=== PATIENT | female | born 1970 | race Caucasian/White ===

== ENCOUNTER 2019-10-23 10:34 | Inpatient (IN) ==
[2019-10-23 11:17] LABS: Basophils % 0.2 % (0.0-0.8); Hematocrit 42.5 VOL% (35.7-47.0); Hemoglobin 14.3 GM/DL (12.0-16.0); Immature Granulocytes % 0.4 %; Immature Granulocytes Absolute 0.02 #; Lymphocytes # 0.6 10*3/uL (1.4-4.0); Lymphocytes % 11.8 % (21.3-54.2); Mean Corpuscular HGB Conc 33.6 GM/DL (32-36); Mean Corpuscular Volume 96.6 FL (87-102); Mean Platelet Volume 8.9 FL (9.6-12.0); Monocytes % 4.8 % (1.7-12.7); Neutrophils % 82.8 % (38.7-73.9); Platelet Count 166 T/CUMM (130-400); Red Cell Distribution Width 14.1 % (9.3-17.3); White Blood Count 5.2 T/CUMM (4-12)
[2019-10-23 11:36] LABS: PT Patient Result 10.4 SECS (9.8-11.9); Partial Thromboplastin Time 36.2 SECS (23.9-33.8)
[2019-10-23 11:41] LABS: Alanine Aminotransferase 65 U/L (13-56); Albumin 3.2 G/DL (3.4-5.0); Alkaline Phosphatase 76 U/L (45-117); Aspartate Amino Transferase 71 U/L (0-37); Bilirubin,Total < 0.39 MG/DL (0.2-1.0); Blood Urea Nitrogen 13 MG/DL (7-18); Calcium 8.4 MG/DL (8.5-10.1); Estimated Glom Filtration Rate 85 ML/MIN; Glucose 110 MG/DL (74-106); Osmolality,Calculated 270.1 MOS/KG (273-304); Total Protein 7.8 G/DL (6.4-8.3)
[2019-10-23 11:42] LABS: ABG Base Excess -1.5 MMOL/L (-2.5-2.5); ABG HCO3 22.8 MMOL/L (20-26); ABG Oxygen Saturation 92.4 % (95-100); ABG PH 7.407 (7.35-7.45); ABG PO2 67.4 MM HG (80-95); ABG TCO2 23.9 MMOL/L (23-27)
[2019-10-23] MEDS ORDERED: cefTRIAXone 1,000 MG in SODIUM CHLORIDE 0.9% 100 ML IV STA (12:10)
[2019-10-23] MEDS ORDERED: DEXAMETHASONE 4 MG/1 ML VIAL IV STA (12:18)
[2019-10-23] MEDS ORDERED: GLUCAGON 1 MG VIAL IM PRN ×2 (13:19)
[2019-10-23] MEDS ORDERED: DEXTROSE 50% 25 GM/50 ML VIAL IV PRN ×2 (13:19)
[2019-10-23 15:54] LABS: Apearance,Urine CLEAR (Clear); Bilirubin,Urine Negative (Negative); Blood, Urine Large mg/dL (Negative); Glucose,Urine (UA) >=500 mg/dL (Negative); Ketones,Urine 20 mg/dL (Negative); Nitrite,Urine Negative (Negative); Protein,Urine 30 MG/DL; RBC,Urine 535 /HPF (0-4); Squamous Epithelial Cell,Urine Occasional /HPF (0-10); Urine Color Yellow (Yellow); Urine Specific Gravity > 1.060 (1.001-1.035); Urine Urobilinogen < 2.0 EU/DL (0.2-1.0); WBC,Urine 1 /HPF (0-6)
[2019-10-23] MEDS: INSULIN REGULAR 100 UNIT/ML SUBCUT SCH ×3 (16:47→22:23)
[2019-10-23] MEDS: AZTREONAM 2,000 MG in SODIUM CHLORIDE 0.9% 100 ML IV SCH (17:52)
[2019-10-23] MEDS: metFORMIN 500 MG TABLET PO SCH (22:17)
[2019-10-23] MEDS: GABAPENTIN 300 MG CAPSULE PO SCH (22:17)
[2019-10-23] MEDS: HEPARIN 5,000 UNIT/1 ML VIAL SUBCUT SCH (22:24)
[2019-10-23 22:39] LABS: Barbiturates Screen,Urine Negative (Negative); Benzodiazepines Screen,Urine Positive (Negative); Cannabinoid Screen,Urine Negative (Negative); Opiate Screen,Urine Positive (Negative); Phencyclidine Screen,Urine Negative (Negative)
[2019-10-24] MEDS: AZTREONAM 2,000 MG in SODIUM CHLORIDE 0.9% 100 ML IV SCH ×2 (00:38→06:30)
[2019-10-24 04:43] LABS: Hemoglobin 13.9 GM/DL (12.0-16.0); Immature Granulocytes % 0.2 %; Immature Granulocytes Absolute 0.01 #; Lymphocytes # 0.8 10*3/uL (1.4-4.0); Lymphocytes % 18.3 % (21.3-54.2); Mean Corpuscular HGB Conc 33.1 GM/DL (32-36); Mean Corpuscular Volume 95.5 FL (87-102); Mean Platelet Volume 8.9 FL (9.6-12.0); Monocytes % 8.1 % (1.7-12.7); Neutrophils % 73.4 % (38.7-73.9); Platelet Count 174 T/CUMM (130-400); White Blood Count 4.4 T/CUMM (4-12)
[2019-10-24 05:11] LABS: Albumin 2.8 G/DL (3.4-5.0); Bilirubin,Total 0.7 MG/DL (0.2-1.0); Calcium 8.6 MG/DL (8.5-10.1); Ferritin 187.8 ng/ml (8-252); Total Protein 7.5 G/DL (6.4-8.3)
[2019-10-24] MEDS: HEPARIN 5,000 UNIT/1 ML VIAL SUBCUT SCH (06:31)
[2019-10-24 06:39] LABS: Sedimentation Rate-Westergren 45 MM/HR (0-20)
[2019-10-24] MEDS ORDERED: ATORVASTATIN 40 MG TABLET PO SCH (09:00)
[2019-10-24] MEDS: INSULIN REGULAR 100 UNIT/ML SUBCUT SCH ×4 (09:14→21:28)
[2019-10-24] MEDS: ESCITALOPRAM 10 MG TABLET PO SCH (09:14)
[2019-10-24] MEDS: metFORMIN 500 MG TABLET PO SCH ×2 (09:14→21:14)
[2019-10-24] MEDS: ENOXAPARIN 60 MG/0.6 ML SYRINGE SUBCUT SCH ×2 (09:15→21:15)
[2019-10-24] MEDS: GABAPENTIN 100 MG CAPSULE PO SCH (09:15)
[2019-10-24] MEDS: buPROPion XL 150 MG TABLET PO SCH (09:15)
[2019-10-24] MEDS: DEXAMETHASONE 4 MG/1 ML VIAL IV SCH (09:16)
[2019-10-24] MEDS ORDERED: DOCUSATE SODIUM 100 MG CAPSULE PO PRN (11:22)
[2019-10-24] MEDS: PANTOPRAZOLE 40 MG VIAL IV SCH (11:46)
[2019-10-24] MEDS: ALBUTEROL INHALER 18 GM INH SCH ×2 (12:38→18:18)
[2019-10-24] MEDS: ACETAMINOPHEN 325 MG TABLET PO PRN (12:38)
[2019-10-24] MEDS: CALCIUM CARBONATE CHEW 500 MG TABLET PO PRN (16:33)
[2019-10-24] MEDS ORDERED: REMDESIVIR 200 MG in SODIUM CHLORIDE 0.9% 210 ML IV ONE (17:00)
[2019-10-24] MEDS: GABAPENTIN 300 MG CAPSULE PO SCH (21:14)
[2019-10-24] MEDS: tiZANidine 4 MG TABLET PO PRN (21:20)
[2019-10-24] MEDS: CLORAZEPATE 7.5 MG TABLET PO PRN (21:20)
[2019-10-25] MEDS: ALBUTEROL INHALER 18 GM INH SCH ×4 (00:20→18:01)
[2019-10-25 03:39] LABS: Hematocrit 43.5 VOL% (35.7-47.0); Immature Granulocytes % 0.3 %; Immature Granulocytes Absolute 0.02 #; Lymphocytes % 17.1 % (21.3-54.2); Mean Corpuscular HGB Conc 32.2 GM/DL (32-36); Monocytes % 7.1 % (1.7-12.7); Neutrophils % 75.5 % (38.7-73.9); Platelet Count 191 T/CUMM (130-400); Red Blood Count 4.44 MC/CUMM (3.8-5.5); Red Cell Distribution Width 14.1 % (9.3-17.3); White Blood Count 5.9 T/CUMM (4-12)
[2019-10-25 03:48] LABS: INR 0.9
[2019-10-25 04:08] LABS: Risk Ratio 3.73; VLDL CHOLESTEROL 32.2 MG/DL
[2019-10-25 04:09] LABS: Albumin 2.8 G/DL (3.4-5.0); Bilirubin,Total 0.9 MG/DL (0.2-1.0); Calcium 8.7 MG/DL (8.5-10.1); Ferritin 201.8 ng/ml (8-252); Osmolality,Calculated 279.5 MOS/KG (273-304); Total Protein 7.3 G/DL (6.4-8.3)
[2019-10-25 04:39] LABS: Sedimentation Rate-Westergren 93 MM/HR (0-20)
[2019-10-25] MEDS: INSULIN REGULAR 100 UNIT/ML SUBCUT SCH ×4 (07:36→21:05)
[2019-10-25] MEDS: CLORAZEPATE 7.5 MG TABLET PO PRN ×2 (07:58→21:06)
[2019-10-25] MEDS: ESCITALOPRAM 10 MG TABLET PO SCH (08:51)
[2019-10-25] MEDS: GABAPENTIN 100 MG CAPSULE PO SCH (08:51)
[2019-10-25] MEDS: metFORMIN 500 MG TABLET PO SCH ×2 (08:52→21:05)
[2019-10-25] MEDS: buPROPion XL 150 MG TABLET PO SCH (08:52)
[2019-10-25] MEDS: PANTOPRAZOLE 40 MG VIAL IV SCH (10:00)
[2019-10-25] MEDS: DEXAMETHASONE 4 MG/1 ML VIAL IV SCH (10:00)
[2019-10-25] MEDS: ENOXAPARIN 60 MG/0.6 ML SYRINGE SUBCUT SCH ×2 (10:01→21:06)
[2019-10-25] MEDS: CALCIUM CARBONATE CHEW 500 MG TABLET PO PRN (10:02)
[2019-10-25] MEDS: REMDESIVIR 100 MG in SODIUM CHLORIDE 0.9% 230 ML IV SCH (16:52)
[2019-10-25] MEDS: ATORVASTATIN 40 MG TABLET PO SCH (21:06)
[2019-10-25] MEDS: tiZANidine 4 MG TABLET PO PRN (21:06)
[2019-10-25] MEDS: GABAPENTIN 300 MG CAPSULE PO SCH (21:06)
[2019-10-26] MEDS: ALBUTEROL INHALER 18 GM INH SCH ×5 (01:09→18:10)
[2019-10-26 06:26] LABS: Basophils % 0.4 % (0.0-0.8); Hematocrit 41.2 VOL% (35.7-47.0); Hemoglobin 13.6 GM/DL (12.0-16.0); Immature Granulocytes % 0.9 %; Immature Granulocytes Absolute 0.05 #; Lymphocytes # 0.9 10*3/uL (1.4-4.0); Lymphocytes % 15.6 % (21.3-54.2); Mean Corpuscular Volume 95.2 FL (87-102); Mean Platelet Volume 9.3 FL (9.6-12.0); Monocytes % 7.3 % (1.7-12.7); Neutrophils % 75.8 % (38.7-73.9); Platelet Count 200 T/CUMM (130-400); Red Blood Count 4.33 MC/CUMM (3.8-5.5); Red Cell Distribution Width 13.8 % (9.3-17.3); White Blood Count 5.6 T/CUMM (4-12)
[2019-10-26 06:40] LABS: Albumin 2.7 G/DL (3.4-5.0); Bilirubin,Total 0.5 MG/DL (0.2-1.0); Calcium 8.7 MG/DL (8.5-10.1); Ferritin 186.8 ng/ml (8-252); Osmolality,Calculated 278.7 MOS/KG (273-304); Total Protein 7.3 G/DL (6.4-8.3)
[2019-10-26 06:42] LABS: PT Patient Result 10.4 SECS (9.8-11.9)
[2019-10-26] MEDS: INSULIN REGULAR 100 UNIT/ML SUBCUT SCH ×4 (07:36→21:23)
[2019-10-26 07:44] LABS: Sedimentation Rate-Westergren 66 MM/HR (0-20)
[2019-10-26] MEDS: ESCITALOPRAM 10 MG TABLET PO SCH (08:58)
[2019-10-26] MEDS: GABAPENTIN 100 MG CAPSULE PO SCH (08:58)
[2019-10-26] MEDS: metFORMIN 500 MG TABLET PO SCH ×2 (08:58→21:23)
[2019-10-26] MEDS: ENOXAPARIN 60 MG/0.6 ML SYRINGE SUBCUT SCH ×2 (08:59→21:24)
[2019-10-26] MEDS: DEXAMETHASONE 4 MG/1 ML VIAL IV SCH (09:00)
[2019-10-26] MEDS: PANTOPRAZOLE 40 MG VIAL IV SCH (09:00)
[2019-10-26] MEDS: buPROPion XL 150 MG TABLET PO SCH (09:01)
[2019-10-26] MEDS: CALCIUM CARBONATE CHEW 500 MG TABLET PO PRN (09:01)
[2019-10-26] MEDS: CLORAZEPATE 7.5 MG TABLET PO PRN ×2 (09:01→21:25)
[2019-10-26] MEDS: REMDESIVIR 100 MG in SODIUM CHLORIDE 0.9% 230 ML IV SCH (16:25)
[2019-10-26] MEDS: ATORVASTATIN 40 MG TABLET PO SCH (21:24)
[2019-10-26] MEDS: GABAPENTIN 300 MG CAPSULE PO SCH (21:24)
[2019-10-26] MEDS: tiZANidine 4 MG TABLET PO PRN (21:25)
[2019-10-27] MEDS: ALBUTEROL INHALER 18 GM INH SCH ×4 (00:37→18:05)
[2019-10-27 07:30] LABS: Basophils % 0.2 % (0.0-0.8); Eosinophils % 0.1 % (0.00-10.9); Hematocrit 41.9 VOL% (35.7-47.0); Hemoglobin 13.8 GM/DL (12.0-16.0); Immature Granulocytes % 0.9 %; Immature Granulocytes Absolute 0.08 #; Lymphocytes # 0.9 10*3/uL (1.4-4.0); Lymphocytes % 9.9 % (21.3-54.2); Mean Corpuscular HGB Conc 32.9 GM/DL (32-36); Mean Corpuscular Volume 95.4 FL (87-102); Mean Platelet Volume 9.3 FL (9.6-12.0); Neutrophils % 83.9 % (38.7-73.9); Platelet Count 245 T/CUMM (130-400); Red Blood Count 4.39 MC/CUMM (3.8-5.5); Red Cell Distribution Width 13.8 % (9.3-17.3)
[2019-10-27 08:09] LABS: Albumin 2.8 G/DL (3.4-5.0); Bilirubin,Total 0.5 MG/DL (0.2-1.0); Calcium 8.6 MG/DL (8.5-10.1); Ferritin 178.1 ng/ml (8-252); Total Protein 6.8 G/DL (6.4-8.3)
[2019-10-27] MEDS: ESCITALOPRAM 10 MG TABLET PO SCH (08:27)
[2019-10-27] MEDS: GABAPENTIN 100 MG CAPSULE PO SCH (08:27)
[2019-10-27] MEDS: CLORAZEPATE 7.5 MG TABLET PO PRN ×2 (08:27→20:55)
[2019-10-27] MEDS: DEXAMETHASONE 4 MG/1 ML VIAL IV SCH (08:28)
[2019-10-27] MEDS: metFORMIN 500 MG TABLET PO SCH ×2 (08:28→20:54)
[2019-10-27] MEDS: buPROPion XL 150 MG TABLET PO SCH (08:28)
[2019-10-27] MEDS: ENOXAPARIN 60 MG/0.6 ML SYRINGE SUBCUT SCH ×2 (08:29→20:53)
[2019-10-27] MEDS: INSULIN REGULAR 100 UNIT/ML SUBCUT SCH ×4 (08:30→21:07)
[2019-10-27 08:43] LABS: Sedimentation Rate-Westergren 57 MM/HR (0-20)
[2019-10-27 10:07] LABS: ABG Base Excess 2.7 MMOL/L (-2.5-2.5); ABG HCO3 26.8 MMOL/L (20-26); ABG Oxygen Saturation 96.6 % (95-100); ABG PCO2 39.8 MM HG (35-48); ABG PH 7.438 (7.35-7.45); ABG PO2 87.1 MM HG (80-95); ABG TCO2 23.4 MMOL/L (23-27); Pt O2 Delivery Device Other
[2019-10-27] MEDS: ACETAMINOPHEN 325 MG TABLET PO PRN (16:04)
[2019-10-27] MEDS: REMDESIVIR 100 MG in SODIUM CHLORIDE 0.9% 230 ML IV SCH (16:04)
[2019-10-27] MEDS: ATORVASTATIN 40 MG TABLET PO SCH (20:54)
[2019-10-27] MEDS: tiZANidine 4 MG TABLET PO PRN (20:55)
[2019-10-27] MEDS: GABAPENTIN 300 MG CAPSULE PO SCH (20:55)
[2019-10-28] MEDS: ALBUTEROL INHALER 18 GM INH SCH ×4 (00:50→18:41)
[2019-10-28 06:15] LABS: Basophils % 0.1 % (0.0-0.8); Eosinophils % 0.3 % (0.00-10.9); Hematocrit 40.5 VOL% (35.7-47.0); Hemoglobin 13.6 GM/DL (12.0-16.0); Immature Granulocytes % 0.8 %; Immature Granulocytes Absolute 0.08 #; Lymphocytes # 0.5 10*3/uL (1.4-4.0); Lymphocytes % 5.5 % (21.3-54.2); Mean Corpuscular HGB Conc 33.6 GM/DL (32-36); Mean Corpuscular Volume 94.4 FL (87-102); Mean Platelet Volume 9.5 FL (9.6-12.0); Monocytes % 2.6 % (1.7-12.7); Neutrophils % 90.7 % (38.7-73.9); Platelet Count 253 T/CUMM (130-400); Red Blood Count 4.29 MC/CUMM (3.8-5.5); Red Cell Distribution Width 13.7 % (9.3-17.3); White Blood Count 9.8 T/CUMM (4-12)
[2019-10-28 06:53] LABS: Albumin 2.5 G/DL (3.4-5.0); Bilirubin,Total 0.7 MG/DL (0.2-1.0); Calcium 8.5 MG/DL (8.5-10.1); Ferritin 176.7 ng/ml (8-252); Osmolality,Calculated 273.1 MOS/KG (273-304)
[2019-10-28 07:45] LABS: INR 1.1; PT Patient Result 11.3 SECS (9.8-11.9)
[2019-10-28] MEDS: INSULIN REGULAR 100 UNIT/ML SUBCUT SCH ×4 (08:37→22:23)
[2019-10-28] MEDS: ENOXAPARIN 60 MG/0.6 ML SYRINGE SUBCUT SCH ×2 (09:41→20:36)
[2019-10-28] MEDS: GABAPENTIN 100 MG CAPSULE PO SCH (09:42)
[2019-10-28] MEDS: DEXAMETHASONE 4 MG/1 ML VIAL IV SCH (09:42)
[2019-10-28] MEDS: buPROPion XL 150 MG TABLET PO SCH (09:43)
[2019-10-28] MEDS: ESCITALOPRAM 10 MG TABLET PO SCH (09:43)
[2019-10-28] MEDS: metFORMIN 500 MG TABLET PO SCH ×2 (09:43→20:35)
[2019-10-28] MEDS: CLORAZEPATE 7.5 MG TABLET PO PRN ×2 (09:43→20:35)
[2019-10-28 09:45] LABS: Anisocytosis Slight; Band Neutrophils 2 % (0-10); Lymphocytes 6 % (20-55); Macrocytosis Slight; Platelet Estimate Normal; Segmented Neutrophils 89 % (50-85); Total Cells Counted 100
[2019-10-28] MEDS: ACETAMINOPHEN 325 MG TABLET PO PRN (09:45)
[2019-10-28 11:08] LABS: Sedimentation Rate-Westergren 90 MM/HR (0-20)
[2019-10-28] MEDS: REMDESIVIR 100 MG in SODIUM CHLORIDE 0.9% 230 ML IV SCH (16:12)
[2019-10-28] MEDS: ATORVASTATIN 40 MG TABLET PO SCH (20:35)
[2019-10-28] MEDS: GABAPENTIN 300 MG CAPSULE PO SCH (20:41)
[2019-10-28] MEDS: LOPERAMIDE 2 MG CAPSULE PO PRN (20:50)
[2019-10-28] MEDS: CALCIUM CARBONATE CHEW 500 MG TABLET PO PRN (20:50)
[2019-10-29] MEDS: ALBUTEROL INHALER 18 GM INH SCH ×4 (01:50→18:14)
[2019-10-29 06:01] LABS: INR 1.1; PT Patient Result 11.4 SECS (9.8-11.9)
[2019-10-29 08:04] LABS: Basophils % 0.1 % (0.0-0.8); Eosinophils # 0.1 10*3/uL (0.0-0.87); Eosinophils % 0.7 % (0.00-10.9); Hemoglobin 13.8 GM/DL (12.0-16.0); Immature Granulocytes % 0.8 %; Immature Granulocytes Absolute 0.09 #; Lymphocytes # 0.5 10*3/uL (1.4-4.0); Lymphocytes % 4.6 % (21.3-54.2); Mean Corpuscular HGB Conc 32.1 GM/DL (32-36); Mean Corpuscular Volume 99.1 FL (87-102); Mean Platelet Volume 9.7 FL (9.6-12.0); Monocytes % 3.1 % (1.7-12.7); Neutrophils % 90.7 % (38.7-73.9); Platelet Count 318 T/CUMM (130-400); Red Blood Count 4.34 MC/CUMM (3.8-5.5); Red Cell Distribution Width 13.7 % (9.3-17.3); White Blood Count 11.6 T/CUMM (4-12)
[2019-10-29 08:23] LABS: Albumin 2.5 G/DL (3.4-5.0); Bilirubin,Total 0.6 MG/DL (0.2-1.0); Calcium 9.2 MG/DL (8.5-10.1); Ferritin 196.9 ng/ml (8-252); Osmolality,Calculated 273.8 MOS/KG (273-304); Total Protein 7.4 G/DL (6.4-8.3)
[2019-10-29 08:28] LABS: Anisocytosis Slight; Band Neutrophils 13 % (0-10); Eosinophils 1 % (0-10); Lymphocytes 4 % (20-55); Platelet Estimate Normal; Segmented Neutrophils 80 % (50-85); Total Cells Counted 100
[2019-10-29 08:29] LABS: Macrocytosis Slight
[2019-10-29] MEDS: INSULIN REGULAR 100 UNIT/ML SUBCUT SCH ×4 (08:30→20:55)
[2019-10-29] MEDS: GABAPENTIN 100 MG CAPSULE PO SCH (08:58)
[2019-10-29] MEDS: ESCITALOPRAM 10 MG TABLET PO SCH (08:58)
[2019-10-29] MEDS: ENOXAPARIN 60 MG/0.6 ML SYRINGE SUBCUT SCH ×2 (08:58→20:56)
[2019-10-29] MEDS: CLORAZEPATE 7.5 MG TABLET PO PRN (08:58)
[2019-10-29] MEDS: metFORMIN 500 MG TABLET PO SCH ×2 (08:58→20:54)
[2019-10-29] MEDS: buPROPion XL 150 MG TABLET PO SCH (08:58)
[2019-10-29] MEDS: DEXAMETHASONE 4 MG/1 ML VIAL IV SCH (08:59)
[2019-10-29] MEDS: carvediloL 6.25 MG TABLET PO SCH ×2 (09:00→20:55)
[2019-10-29 09:20] LABS: Sedimentation Rate-Westergren 57 MM/HR (0-20)
[2019-10-29] MEDS: LOPERAMIDE 2 MG CAPSULE PO PRN (14:27)
[2019-10-29] MEDS: GABAPENTIN 300 MG CAPSULE PO SCH (20:55)
[2019-10-29] MEDS: ATORVASTATIN 40 MG TABLET PO SCH (20:55)
[2019-10-30] MEDS: ALBUTEROL INHALER 18 GM INH SCH ×4 (01:45→20:00)
[2019-10-30 05:58] LABS: Basophils % 0.1 % (0.0-0.8); Eosinophils # 0.1 10*3/uL (0.0-0.87); Eosinophils % 0.7 % (0.00-10.9); Hematocrit 42.7 VOL% (35.7-47.0); Hemoglobin 13.9 GM/DL (12.0-16.0); Immature Granulocytes % 1.2 %; Immature Granulocytes Absolute 0.16 #; Lymphocytes # 0.5 10*3/uL (1.4-4.0); Mean Corpuscular HGB Conc 32.6 GM/DL (32-36); Mean Corpuscular Volume 96.6 FL (87-102); Mean Platelet Volume 9.7 FL (9.6-12.0); Monocytes % 2.5 % (1.7-12.7); Neutrophils % 91.5 % (38.7-73.9); Platelet Count 365 T/CUMM (130-400); Red Blood Count 4.42 MC/CUMM (3.8-5.5); Red Cell Distribution Width 13.4 % (9.3-17.3); White Blood Count 13.6 T/CUMM (4-12)
[2019-10-30 06:05] LABS: INR 1.1; PT Patient Result 11.4 SECS (9.8-11.9)
[2019-10-30 06:22] LABS: Eosinophils 1 % (0-10); Lymphocytes 2 % (20-55); Platelet Estimate Adequate; Segmented Neutrophils 94 % (50-85); Total Cells Counted 100
[2019-10-30 06:23] LABS: Macrocytosis Slight
[2019-10-30 06:26] LABS: Albumin 2.4 G/DL (3.4-5.0); Bilirubin,Total 0.7 MG/DL (0.2-1.0); Calcium 8.8 MG/DL (8.5-10.1); Ferritin 203.6 ng/ml (8-252); Total Protein 6.4 G/DL (6.4-8.3)
[2019-10-30 07:09] LABS: Sedimentation Rate-Westergren 29 MM/HR (0-20)
[2019-10-30] MEDS: DEXAMETHASONE 4 MG/1 ML VIAL IV SCH (08:53)
[2019-10-30] MEDS: ENOXAPARIN 60 MG/0.6 ML SYRINGE SUBCUT SCH ×2 (08:53→20:00)
[2019-10-30] MEDS: INSULIN REGULAR 100 UNIT/ML SUBCUT SCH ×4 (08:54→21:29)
[2019-10-30] MEDS: buPROPion XL 150 MG TABLET PO SCH (08:55)
[2019-10-30] MEDS: metFORMIN 500 MG TABLET PO SCH (08:55)
[2019-10-30] MEDS: ESCITALOPRAM 10 MG TABLET PO SCH (08:55)
[2019-10-30] MEDS: CLORAZEPATE 7.5 MG TABLET PO PRN (08:55)
[2019-10-30] MEDS: GABAPENTIN 100 MG CAPSULE PO SCH (08:55)
[2019-10-30] MEDS: carvediloL 6.25 MG TABLET PO SCH ×2 (08:56→20:00)
[2019-10-30] MEDS: CALCIUM CARBONATE CHEW 500 MG TABLET PO PRN (10:02)
[2019-10-30 10:29] LABS: ABG Base Excess 5.8 MMOL/L (-2.5-2.5); ABG HCO3 29.4 MMOL/L (20-26); ABG Oxygen Saturation 91.1 % (95-100); ABG PCO2 42.9 MM HG (35-48); ABG PH 7.457 (7.35-7.45); ABG PO2 63.1 MM HG (80-95); ABG TCO2 26.1 MMOL/L (23-27); Allen Test Positive; Pt O2 Delivery Device Other
[2019-10-30] MEDS ORDERED: ONDANSETRON 4 MG/2 ML VIAL IV PRN (13:38)
[2019-10-30] MEDS ORDERED: BISACODYL 5 MG TABLET PO PRN (13:38)
[2019-10-30] MEDS: GABAPENTIN 300 MG CAPSULE PO SCH (20:00)
[2019-10-30] MEDS: ATORVASTATIN 40 MG TABLET PO SCH (20:00)
[2019-10-30] MEDS ORDERED: CLORAZEPATE 7.5 MG TABLET PO PRN (20:16)
[2019-10-30] MEDS ORDERED: tiZANidine 4 MG TABLET PO PRN (20:17)
[2019-10-30] MEDS ORDERED: ALBUTEROL/IPRATROPIUM 3 ML NEB RESP TX PRN (22:54)
[2019-10-30] MEDS ORDERED: ALBUTEROL/IPRATROPIUM 3 ML NEB RESP TX ONE (22:56)
[2019-10-31 00:50] LABS: ABG Base Excess 6.2 MMOL/L (-2.5-2.5); ABG HCO3 29.8 MMOL/L (20-26); ABG Oxygen Saturation 86.2 % (95-100); ABG PCO2 49.1 MM HG (35-48); ABG PH 7.421 (7.35-7.45); ABG PO2 54.1 MM HG (80-95)
[2019-10-31] MEDS: ALBUTEROL INHALER 18 GM INH SCH ×4 (01:00→18:16)
[2019-10-31 03:40] LABS: Basophils % 0.2 % (0.0-0.8); Eosinophils # 0.1 10*3/uL (0.0-0.87); Eosinophils % 0.8 % (0.00-10.9); Hematocrit 43.1 VOL% (35.7-47.0); Immature Granulocytes % 0.8 %; Immature Granulocytes Absolute 0.11 #; Lymphocytes # 0.5 10*3/uL (1.4-4.0); Lymphocytes % 3.8 % (21.3-54.2); Mean Corpuscular HGB Conc 32.5 GM/DL (32-36); Mean Corpuscular Volume 96.9 FL (87-102); Mean Platelet Volume 9.4 FL (9.6-12.0); Monocytes % 2.7 % (1.7-12.7); Neutrophils % 91.7 % (38.7-73.9); Platelet Count 371 T/CUMM (130-400); Red Blood Count 4.45 MC/CUMM (3.8-5.5); Red Cell Distribution Width 13.7 % (9.3-17.3); White Blood Count 14.2 T/CUMM (4-12)
[2019-10-31] MEDS: ACETAMINOPHEN 325 MG TABLET PO PRN (04:05)
[2019-10-31 04:07] LABS: Albumin 2.3 G/DL (3.4-5.0); Bilirubin,Total 0.9 MG/DL (0.2-1.0); Calcium 8.9 MG/DL (8.5-10.1); Ferritin 207.2 ng/ml (8-252); Osmolality,Calculated 276.7 MOS/KG (273-304); Total Protein 7.4 G/DL (6.4-8.3)
[2019-10-31 04:26] LABS: Band Neutrophils 1 % (0-10); Hypochromasia 1+; Lymphocytes 4 % (20-55); Platelet Estimate Adequate; Segmented Neutrophils 93 % (50-85); Total Cells Counted 100
[2019-10-31 04:27] LABS: Macrocytosis Slight
[2019-10-31 05:13] LABS: ABG Base Excess 6.1 MMOL/L (-2.5-2.5); ABG HCO3 29.6 MMOL/L (20-26); ABG Oxygen Saturation 84.4 % (95-100); ABG PCO2 43.5 MM HG (35-48); ABG PH 7.458 (7.35-7.45); ABG PO2 51.9 MM HG (80-95); ABG TCO2 26.7 MMOL/L (23-27); Allen Test Positive; Pt O2 Delivery Device Other
[2019-10-31 08:23] LABS: Sedimentation Rate-Westergren 25 MM/HR (0-20)
[2019-10-31] MEDS ORDERED: cefTRIAXone 1,000 MG in SYRINGE 1 EACH IV SCH (08:30)
[2019-10-31] MEDS ORDERED: PANTOPRAZOLE 40 MG TABLET PO SCH (09:00)
[2019-10-31] MEDS: INSULIN REGULAR 100 UNIT/ML SUBCUT SCH ×4 (09:14→21:21)
[2019-10-31] MEDS: buPROPion XL 150 MG TABLET PO SCH (09:15)
[2019-10-31] MEDS: DEXAMETHASONE 4 MG/1 ML VIAL IV SCH (09:15)
[2019-10-31] MEDS: ENOXAPARIN 60 MG/0.6 ML SYRINGE SUBCUT SCH ×2 (09:15→20:55)
[2019-10-31] MEDS: ESCITALOPRAM 10 MG TABLET PO SCH (09:15)
[2019-10-31] MEDS: HYDROXYCHLOROQUINE 200 MG TABLET PO SCH ×2 (09:35→20:57)
[2019-10-31] MEDS: LORazepam 2 MG/1 ML VIAL IV PRN ×3 (09:59→23:12)
[2019-10-31] MEDS: GABAPENTIN 300 MG CAPSULE PO SCH (20:55)
[2019-10-31] MEDS: ATORVASTATIN 40 MG TABLET PO SCH (20:57)
[2019-10-31] MEDS ORDERED: FAMOTIDINE 20 MG TABLET PO SCH (21:00)
[2019-10-31] MEDS ORDERED: ASCORBIC ACID 500 MG TABLET PO SCH (21:00)
[2019-10-31] MEDS ORDERED: LORazepam 2 MG/1 ML VIAL ONE (23:05)
[2019-11-01] MEDS ORDERED: ETOMIDATE 20 MG/10 ML VIAL IV ONE ×4 (00:59→01:34)
[2019-11-01] MEDS ORDERED: SUCCINYLCHOLINE 200 MG/10 ML VIAL ONE (01:00)
[2019-11-01] MEDS ORDERED: SUCCINYLCHOLINE 200 MG/10 ML VIAL IV ONE ×2 (01:28→01:34)
[2019-11-01] MEDS ORDERED: propofoL 200 MG/20 ML VIAL IV ONE ×3 (01:45→01:58)
[2019-11-01] MEDS ORDERED: ROCURONIUM 500 MG in SODIUM CHLORIDE 0.9% 500 ML IV PRN (02:00)
[2019-11-01] MEDS ORDERED: NOREPINEPHRINE 8 MG in SODIUM CHLORIDE 0.9% 242 ML IV PRN (02:12)
[2019-11-01] MEDS ORDERED: fentaNYL INJ 1,250 MCG in SODIUM CHLORIDE 0.9% 225 ML IV PRN (02:17)
[2019-11-01] MEDS: ALBUTEROL INHALER 18 GM INH SCH (02:31)
[2019-11-01 03:07] LABS: Allen Test Positive; Pt O2 Delivery Device Ventilator
[2019-11-01 03:14] LABS: ABG Base Excess -2.5 MMOL/L (-2.5-2.5); ABG HCO3 22.3 MMOL/L (20-26); ABG TCO2 28.8 MMOL/L (23-27)
[2019-11-01 03:16] LABS: ABG PCO2 97.4 MM HG (35-48); ABG PH 7.125 (7.35-7.45)
[2019-11-01] MEDS ORDERED: DIGOXIN 0.5 MG/2 ML AMP IV ONE ×3 (03:21→04:00)
[2019-11-01 04:21] LABS: Basophils # 0.2 10*3/uL (0.0-0.2); Basophils % 0.5 % (0.0-0.8); Eosinophils # 0.1 10*3/uL (0.0-0.87); Eosinophils % 0.4 % (0.00-10.9); Hematocrit 48.8 VOL% (35.7-47.0); Hemoglobin 15.5 GM/DL (12.0-16.0); Immature Granulocytes % 3.2 %; Immature Granulocytes Absolute 1.12 #; Lymphocytes # 2.4 10*3/uL (1.4-4.0); Mean Corpuscular HGB Conc 31.8 GM/DL (32-36); Mean Corpuscular Volume 98.4 FL (87-102); Mean Platelet Volume 9.9 FL (9.6-12.0); Monocytes % 3.5 % (1.7-12.7); NRBC # 0.03 10*3/uL; Neutrophils % 85.4 % (38.7-73.9); Red Blood Count 4.96 MC/CUMM (3.8-5.5); Red Cell Distribution Width 13.9 % (9.3-17.3)
[2019-11-01 04:24] VITALS: BP 96/60
[2019-11-01 04:24] LABS: Platelet Count 654 T/CUMM (130-400); White Blood Count 34.7 T/CUMM (4-12)
[2019-11-01 04:29] LABS: Eosinophils 1 % (0-10); Lymphocytes 3 % (20-55); Platelet Estimate Increased; Segmented Neutrophils 92 % (50-85); Total Cells Counted 100
[2019-11-01 04:30] LABS: Macrocytosis Slight
[2019-11-01 04:53] LABS: Albumin 2.3 G/DL (3.4-5.0); Bilirubin,Total 1.6 MG/DL (0.2-1.0); Calcium 8.8 MG/DL (8.5-10.1); Ferritin 354.1 ng/ml (8-252); Osmolality,Calculated 279.2 MOS/KG (273-304); Total Protein 8.1 G/DL (6.4-8.3)
[2019-11-01 04:55] LABS: ABG Base Excess -7.4 MMOL/L (-2.5-2.5); ABG HCO3 18.4 MMOL/L (20-26); ABG Oxygen Saturation 89.4 % (95-100); ABG TCO2 26.3 MMOL/L (23-27); Allen Test Positive; Pt O2 Delivery Device Ventilator
[2019-11-01 05:04] LABS: ABG PH 7.054 (7.35-7.45)
[2019-11-01] MEDS ORDERED: SODIUM BICARBONATE 50 MEQ/50 ML SYRINGE IV ONE (05:10)
[2019-11-01] MEDS ORDERED: EPINEPHrine 1 MG/10 ML SYRINGE ONE (05:10)
[2019-11-01 05:50] LABS: Sedimentation Rate-Westergren 15 MM/HR (0-20)
[2019-11-01] MEDS ORDERED: CETIRIZINE 10 MG TABLET PO SCH (09:00)
[2019-11-01] MEDS ORDERED: HYDROXYCHLOROQUINE 200 MG TABLET PO SCH (09:00)
[2019-11-01] MEDS ORDERED: CHOLECALCIFEROL 1,000 UNIT TABLET PO SCH (09:00)
== END 2019-11-01 06:00 | disposition expired | DRG 871 ==
LOC: N.ED 10:34 → N.EDINP 13:45 → SUATTDRO 13:45 → N.2E 15:18 → N.CC 10-30 11:57
PROVIDERS: ADMIT Internal Medicine; ATTEND Family Medicine